=== PATIENT | female | born 1990 | race Caucasian/White ===

== ENCOUNTER 2022-09-12 18:04 | Emergency (ER) | payer OTHER ==
[2022-09-12] MEDS ORDERED: Lidocaine 1% PF 2 ML SDV INJECT ONE (18:32)
[2022-09-12] MEDS ORDERED: Diphtheria,Pertussis(Acell),Tetanus Vaccine 0.5 ML Syringe IM ONE (18:32)
[2022-09-12] MEDS ORDERED: Acetaminophen/HYDROcodone 325-5 MG Tab PO ONE (19:43)
== END 2022-09-12 19:55 | disposition home or self-care (01) ==
LOC: MW.ED 18:04
DX: S51.012A Laceration without foreign body of left elbow, initial encounter (principal); Z88.0 Allergy status to penicillin; Z23 Encounter for immunization; W01.0XXA Fall on same level from slipping, tripping and stumbling without subsequent striking against object, initial encounter
CPT/HCPCS: 73080; 73090; 90715; A9270; 12001; 90471; 99282; 99283-25; J3490